=== PATIENT | male | born 2000 | race Caucasian/White ===

== ENCOUNTER 2020-02-27 13:03 | Day surgery (SDC) | payer BC, OTHER ==
[2020-02-20 13:16] VITALS: BMI 25.7
[~2020-02-27 13:03] MED LIST: LACTATED RINGERS 1,000 ML IV SCH
[2020-02-27 13:35] VITALS: RESP 16; TEMP 97.9
[2020-02-27] MEDS ORDERED: fentaNYL (PF) 50 MCG/ML 2 ML AMP ONE (13:38)
[2020-02-27] MEDS ORDERED: MIDAZOLAM 2 MG/2 ML VIAL ONE (13:38)
[2020-02-27] MEDS ORDERED: LIDOCAINE 1% INJ 10MG/ML (20 ML MDV) ONE (13:38)
[2020-02-27] MEDS ORDERED: PROPOFOL 10 MG/ML 20 ML VIAL IV ONE (13:38)
--- NOTE | 2020-02-27 14:22 | P.PCN ---
Date of Procedure: 02/27/20 Description of Procedure: BRIEF HISTORY: Patient is a 19-year-old male presenting for outpatient colonoscopy for evaluation of symptoms of diarrhea. The patient reports frequent loose bowel movements occurring over the past 5 months. Generally having 5-6 loose bowel movements with associated urgency. No weight loss reported. He does report symptoms worsen with stress. PROCEDURE PERFORMED: Colonoscopy with biopsy. PREOPERATIVE DIAGNOSIS: Diarrhea, altered bowel function. ESTIMATED BLOOD LOSS: Minimal. IV sedation per Anesthesia. PROCEDURE: After informed consent was obtained, the patient, was brought into the endoscopy unit. IV sedation was administered by Anesthesia under continuous monitoring. Digital rectal examination was normal. Initially the Olympus CF-190 flexible video colonoscope was then inserted in the rectum, gradually advanced into the cecum without any difficulty. Careful examination was performed as the scope was gradually being withdrawn. Ileocecal valve and the appendiceal orifice were visualized and appeared normal. Prep was excellent. Mucosa of the cecum, ascending colon, transverse colon, descending colon, sigmoid colon, and rectum appeared normal, with biopsies taken of the right and left colon and the second of altered bowel function. The terminal ileum was also intubated and appeared normal with biopsies taken. Retroflexion was performed in the rectum and no lesions were seen. The patient tolerated the procedure well. IMPRESSION: Normal-appearing colon from rectum to cecum, with normal-appearing terminal ileum with random biopsies taken of the right colon, left colon and terminal ileum in the setting of altered bowel function.. RECOMMENDATIONS: Findings of this examination were discussed with the patient and his fianc. Okay to resume diet. Okay to resume medications. Continue Bentyl therapy. Follow-up in GI clinic on 03/10/2020 as scheduled for results of biopsies.
[2020-02-27 14:27] VITALS: BP 103/62; PULSE 59
== END 2020-02-27 15:00 | disposition home or self-care (01) ==
LOC: ORWHC2ENDO 13:03
PROVIDERS: ATTEND Internal Medicine
DX: R19.7 Diarrhea, unspecified (principal); R19.4 Change in bowel habit; F17.290 Nicotine dependence, other tobacco product, uncomplicated; Z91.040 Latex allergy status; Z98.890 Other specified postprocedural states; Z79.899 Other long term (current) drug therapy
CPT/HCPCS: 88305; 45380; J2250; J2001; J3010; J2704

== ENCOUNTER 2021-04-01 00:18 | Emergency (ER) | payer BC ==
[2021-04-01 00:24] VITALS: RESP 20
[2021-04-01] MEDS ORDERED: ONDANSETRON 4 MG/2 ML VIAL IVP STA (00:34)
[2021-04-01] MEDS ORDERED: SODIUM CHLORIDE 0.9% 1,000 ML IV ONE (00:34)
[2021-04-01] MEDS ORDERED: IBUPROFEN IV 800 MG in SODIUM CHLORIDE 0.9% 250 ML IV ONE (00:34)
--- NOTE | 2021-04-01 00:38 | ED ---
URI HPI - General Chief Complaint: Upper Respiratory Infection Stated Complaint: covid+, nausea Time Seen by Provider: 04/01/21 00:29 Source: patient, family Limitations: no limitations - History of Present Illness Initial Comments: 20 year-old male patient presents to the emergency department for evaluation of nausea, vomiting fevers. States that he tested positive for COVID-19 03/25/21, started having symptoms the day before. States he has been taking elderberry, tylenol, and robitussin without much relief. States he cannot eat or drink due to nausea. Did have an episode of vomiting prior to coming in. States he is otherwise healthy. Had asthma as a child, resolved. Patient denies any recent rash, shortness of breath, chest pain, abdominal pain, diarrhea, constipation, back pain, numbness, tingling, dizziness, weakness, hematuria, dysuria, urinary urgency, urinary frequency, headache, visual changes, or any other complaints. - Related Data Previous Rx's Medication Instructions Recorded Ibuprofen [Motrin] 600 mg PO Q8HR PRN #30 tab 04/01/21 Ondansetron [Zofran ODT] 4 mg PO Q8HR PRN #10 tab 04/01/21 Allergies Allergy/AdvReac Type Severity Reaction Status Date / Time latex Allergy Unknown RED SKIN Verified 04/01/21 00:24 Review of Systems ROS Statement: Those systems with pertinent positive or pertinent negative responses have been documented in the HPI. ROS Other: All systems not noted in ROS Statement are negative. Past Medical History Past Medical History: GERD/Reflux Additional Past Medical History / Comment(s): DIARRHEA, ABDOMINAL PAIN. IBS History of Any Multi-Drug Resistant Organisms: None Reported Past Surgical History: Ear Surgery Additional Past Surgical History / Comment(s): TUBES IN EARS A CHILD Past Anesthesia/Blood Transfusion Reactions: No Reported Reaction Past Psychological History: No Psychological Hx Reported Smoking Status: Vaper Past Alcohol Use History: None Reported Past Drug Use History: None Reported - Past Family History Mother Family Medical History: No Reported History General Exam Limitations: no limitations General appearance: alert, in no apparent distress, other (This is a well- developed, well-nourished adult male in no acute distress.) ENT exam: Present: normal exam, normal oropharynx, mucous membranes moist Respiratory exam: Present: normal lung sounds bilaterally. Absent: respiratory distress, wheezes, rales, rhonchi, stridor Cardiovascular Exam: Present: normal rhythm, tachycardia, normal heart sounds. Absent: systolic murmur, diastolic murmur, rubs, gallop, clicks GI/Abdominal exam: Present: soft, normal bowel sounds. Absent: distended, tenderness, guarding, rebound, rigid Neurological exam: Present: alert, oriented X3, CN II-XII intact Psychiatric exam: Present: normal affect, normal mood Skin exam: Present: warm, dry, intact, normal color. Absent: rash Course Vital Signs 04/01/21 04/01/21 00:21 01:59 Temperature 99.0 F 100 F H Pulse Rate 105 H 83 Respiratory 20 20 Rate Blood Pressure 148/67 114/68 O2 Sat by Pulse 99 97 Oximetry Medical Decision Making - Medical Decision Making 20-year-old male patient presents to the emergency department today for evaluation of nausea and fevers area day was positive for Covid outpatient. Physical examination reveal clear equal lung sounds rate is having no respiratory difficulties. She did have mildly elevated temperature. Other vitals are unremarkable. He was given IV fluids, nausea medication, Zofran, and IV ibuprofen. Upon reevaluation states he is feeling much better. He does for comfort being discharged home at this time. He'll be given prescriptions for ibuprofen and Zofran. Given other tips for supportive care. He is instructed to follow-up with his primary care physician for recheck in 1-2 days. Return parameters were discussed in detail. He verbalizes understanding and agrees with this plan. My attending is Dr. Napoles. Disposition Clinical Impression: COVID-19 Disposition: HOME SELF-CARE Condition: Good Instructions (If sedation given, give patient instructions): Coronavirus Disease 2019 (COVID-19) Additional Instructions: Tips to help you feel better: -Maintain adequate fluid intake - especially water. -Rest, you are healing your body will require extra sleep. -Eat even if you do not feel like it - broth, jello, toast are fine if you cannot eat full meals. -Take tylenol and motrin alternating (if you have no allergies or have not been instructed to avoid these medications) to help with body aches and fevers. -Obtain over the counter vitamin C, zinc, and vitamin D3. -Take medications as prescribed. Follow-up with your primary care physician for recheck in 1-2 days. Return for any new, worsening, or concerning symptoms. Prescriptions: Ibuprofen [Motrin] 600 mg PO Q8HR PRN #30 tab PRN Reason: Pain Ondansetron [Zofran ODT] 4 mg PO Q8HR PRN #10 tab PRN Reason: Nausea Is patient prescribed a controlled substance at d/c from ED?: No Referrals: Mayra Hernandez III, MD [Primary Care Provider] - 1-2 days Time of Disposition: 02:13
[2021-04-01 02:00] VITALS: BP 114/68; PULSE 83; TEMP 100
== END 2021-04-01 02:28 | disposition home or self-care (01) ==
LOC: EC 00:18
DX: U07.1 COVID-19 (principal); K21.9 Gastro-esophageal reflux disease without esophagitis; F17.290 Nicotine dependence, other tobacco product, uncomplicated; Z79.1 Long term (current) use of non-steroidal anti-inflammatories (NSAID); Z79.899 Other long term (current) drug therapy
CPT/HCPCS: 96374; 96375; 96361; 99283; J2405; J1741